=== PATIENT | male | born 1960 | race Caucasian/White ===

== ENCOUNTER 2019-04-10 04:10 | Emergency (ER) | payer MEDICARE, BC ==
[~2019-04-10] VITALS: Ht 187.9 cm; Wt 94.3 kg
[2019-04-10] VITALS (7 sets, daily range): BP systolic 102–111; BP diastolic 52–60
[~2019-04-10 04:10] MED LIST: AZO-SULFISOXAZO1 TA1 PO; CHLORDIAZEPOXID PO; CYANOCOBAL1000 MCG/M SC; CYCLOBENZAPRINE5 M3 PO; Cimetidine400 MG PO; DULOXETINE HCL60 MG PO; KEFLEX 500 MG E2 CAP PO; LIBRIUM5 MG PO; LISINOPRIL20 MG PO; MELOXICAM15 MG PO; METRONIDAZOLE TP; OXYCODONE HCL5 MG PO; SIMVASTATIN40 MG PO; TRAMADOL HCL50 MG PO; VITAMIN D50000 I3 PO
[2019-04-10 05:13] LABS: MEAN CELL VOLUME 144.6 fl (80.0-94.0); MEAN CORPUSCULAR HGB CONC 31.6 g/dl (33.0-37.0); MEAN PLATELET VOLUME 12.7 fl (9.6-12.3); NUCLEATED RED BLOOD CELL 0.1 10*3/uL (0.0-0.0); NUCLEATED RED BLOOD CELL 0.6 % (0.0-0.0); PLATELET COUNT AUTOMATED 88 10*3/uL (130-400); RED BLOOD COUNT 0.92 10*6/uL (4.50-5.90); WHITE BLOOD COUNT 7.7 10*3/uL (4.8-10.8)
[2019-04-10 05:19] LABS: MEAN CORPUSCULAR HGB 45.7 pg (27.0-31.0)
[2019-04-10 05:21] LABS: HEMOGLOBIN 4.2 g/dl (14.0-18.0)
--- NOTE | 2019-04-10 05:21 | NUR ---
NOTIFICATION FROM LAB OF HMG OF 4.2 AND HCT OF 13.3 MD. MADE AWARE. CARON CAT RN.
[2019-04-10 05:24] LABS: HEMATOCRIT 13.3 % (42.0-52.0)
[2019-04-10 05:30] LABS: ALBUMIN 2.4 gm/dl (3.1-4.5); ALKALINE PHOSPHATASE 86 U/L (45-117); BUN 57 mg/dl (7-24); CHLORIDE 101 mmol/L (98-107); CPK 87 U/L (39-308); CREATININE 2.73 mg/dL (0.70-1.30); LIPASE 1069 U/L (73-393); POTASSIUM 4.8 mmol/L (3.5-5.1); SGOT/AST 111 IU/L (3-35); SGPT/ALT 43 U/L (12-78); SODIUM 133 mmol/L (136-145); TOTAL PROTEIN 8.3 gm/dL (6.4-8.2)
[2019-04-10 05:35] LABS: TROPONIN I < 0.015 ng/ml (<0.045)
--- NOTE | 2019-04-10 05:35 | NUR ---
NOTIFICATION FROM LAB OF A LACTIC ACID OF 4.6 MD POWELL AWARE. CARON CAT RN.
[2019-04-10 05:40] LABS: INTERNATIONAL NORM RATIO 2.1 (2.0-3.5)
[2019-04-10 05:45] LABS: MEAN CELL VOLUME 144.3 fl (80.0-94.0); MEAN CORPUSCULAR HGB 44.3 pg (27.0-31.0); MEAN CORPUSCULAR HGB CONC 30.7 g/dl (33.0-37.0); MEAN PLATELET VOLUME 12.9 fl (9.6-12.3); NUCLEATED RED BLOOD CELL 0.1 10*3/uL (0.0-0.0); NUCLEATED RED BLOOD CELL 0.9 % (0.0-0.0); PLATELET COUNT AUTOMATED 79 10*3/uL (130-400); RED BLOOD COUNT 0.88 10*6/uL (4.50-5.90); WHITE BLOOD COUNT 6.8 10*3/uL (4.8-10.8)
[2019-04-10 05:48] LABS: HEMOGLOBIN 3.9 g/dl (14.0-18.0)
[2019-04-10 05:49] LABS: HEMATOCRIT 12.7 % (42.0-52.0)
--- NOTE | 2019-04-10 05:52 | NUR ---
HGB 3.9, HCT 12.[address] MCNAMARA NOTIFIED.
[2019-04-10 06:00] LABS: BASOPHILS 2 % (0-1); PLATELET SUFFICIENCY LOW (NORMAL); POLYCHROMASIA SLIGHT; ROULEAUX MODERATE; TARGET CELLS FEW; TOTAL CELLS COUNTED 100 #CELLS
[2019-04-10 06:01] LABS: HOWELL-JOLLY BODIES FEW
[2019-04-10 06:06] LABS: BASOPHILS 1 % (0-1); PLATELET SUFFICIENCY LOW (NORMAL); POLYCHROMASIA SLIGHT; ROULEAUX MODERATE; TARGET CELLS FEW; TOTAL CELLS COUNTED 100 #CELLS
--- NOTE | 2019-04-10 07:30 | NUR ---
FIRST UNIT OF PRBC'S STARTED. UNABLE TO SCAN ON TAR IT IS CURRENTLY DOWN ACCORDING TO BLOOD BANK.
--- NOTE | 2019-04-10 08:55 | NUR ---
[facility]IFE TEAM HERE FOR TRANSPORT.
--- NOTE | 2019-04-10 08:55 | NUR ---
BLOOD STILL TRANSFUSING UPON DISCHARGE.
--- NOTE | 2019-04-10 08:58 | NUR ---
REPORT TO LUIS AT [facility].
== END 2019-04-10 09:01 | disposition short-term general hospital (02) ==
LOC: ED 04:10 → EDHOLD 06:27 → ED 06:27
PROVIDERS: Emergency Medicine
DX: K92.2 Gastrointestinal hemorrhage, unspecified (principal); D64.9 Anemia, unspecified; F10.121 Alcohol abuse with intoxication delirium; D68.9 Coagulation defect, unspecified; I10 Essential (primary) hypertension; E78.5 Hyperlipidemia, unspecified; Y90.9 Presence of alcohol in blood, level not specified

== ENCOUNTER 2019-06-10 13:47 | Inpatient (IN) | payer MEDICARE, BC ==
[~2019-06-10] VITALS: Ht 187.9 cm; Wt 77.1 kg
[2019-06-10] VITALS (19 sets, daily range): BP systolic 111–163; BP diastolic 59–110
[2019-06-10 14:39] LABS: MEAN CELL VOLUME 108.2 fl (80.0-94.0); MEAN CORPUSCULAR HGB 35.2 pg (27.0-31.0); MEAN CORPUSCULAR HGB CONC 32.5 g/dl (33.0-37.0); MEAN PLATELET VOLUME 11.5 fl (9.6-12.3); PLATELET COUNT AUTOMATED 104 10*3/uL (130-400); RED BLOOD COUNT 1.82 10*6/uL (4.50-5.90); RED CELL DISTRI WIDTH 16.2 % (0-14.5); WHITE BLOOD COUNT 6.6 10*3/uL (4.8-10.8)
[2019-06-10 14:41] LABS: HEMOGLOBIN 6.4 g/dl (14.0-18.0)
[2019-06-10 14:42] LABS: HEMATOCRIT 19.7 % (42.0-52.0)
[2019-06-10 14:48] LABS: INTERNATIONAL NORM RATIO 1.7 (2.0-3.5)
[2019-06-10 14:54] LABS: ALBUMIN 2.5 gm/dl (3.1-4.5); ALKALINE PHOSPHATASE 143 U/L (45-117); BUN 38 mg/dl (7-24); CHLORIDE 104 mmol/L (98-107); CREATININE 2.04 mg/dL (0.70-1.30); POTASSIUM 4.6 mmol/L (3.5-5.1); SGOT/AST 94 IU/L (3-35); SGPT/ALT 78 U/L (12-78); SODIUM 138 mmol/L (136-145); TOTAL PROTEIN 8.5 gm/dL (6.4-8.2)
[2019-06-10 14:55] LABS: TROPONIN I < 0.015 ng/ml (<0.045)
[2019-06-10 15:01] LABS: TOTAL CELLS COUNTED 100 #CELLS
[2019-06-10 15:02] LABS: OVALOCYTES FEW; PLATELET SUFFICIENCY NORMAL (NORMAL); SCHISTOCYTES FEW
--- NOTE | 2019-06-10 21:48 | NUR ---
A 58, admitted to 4E, under the services of ALEKSANDRA Patton DO with a diagnosis of HYPERAMMONEMIA. Chief complaint is ANEMIA. Patient arrived via stretcher from ER. Monitor applied. Initial assessment completed. Vital signs taken and recorded. ALEKSANDRA PATTON DO notified of admission to the unit. Orders received. See assessment for past medical history, medications and allergies. Patient and/or family oriented to unit. Clothing/patient valuable form completed. JUANI JACOBS
--- NOTE | 2019-06-10 22:00 | NUR ---
AT BEDSIDE, MED REC COMPLETED PER HER.
[2019-06-10] MEDS ORDERED: LACTULOSE10 GM/15 M PO (22:08)
[2019-06-10] MEDS ORDERED: B121000 MCG/1 IM (22:16)
[2019-06-10] MEDS ORDERED: GLIPIZIDE5 MG PO (22:19)
[2019-06-10] MEDS ORDERED: HYDROXYZINE HCL25 MG PO (22:20)
[2019-06-10] MEDS ORDERED: FUROSEMIDE40 MG PO (22:20)
[2019-06-10] MEDS ORDERED: PANTOPRAZOLE SO40 MG PO (22:20)
[2019-06-10] MEDS ORDERED: METOPROLOL TART50 M1 PO (22:21)
[2019-06-10] MEDS ORDERED: NATURE'S BLEND F1 MG PO (22:21)
[2019-06-11] VITALS: BP 111/49
[2019-06-11 06:08] LABS: ALBUMIN 2.1 gm/dl (3.1-4.5); CREATININE 2.09 mg/dL (0.70-1.30); PHOSPHOROUS 4.8 mg/dL (2.5-4.9); POTASSIUM 4.6 mmol/L (3.5-5.1); TOTAL PROTEIN 7.6 gm/dL (6.4-8.2)
[2019-06-11 06:13] LABS: THYROID STIM HORMONE (HS) 0.929 uIU/ml (0.358-4.75)
[2019-06-11 06:18] LABS: FREE T4 1.25 ng/dl (0.76-1.46)
[2019-06-11 06:27] LABS: BASO # 0.1 10*3/uL (0.0-0.1); BASO % 0.8 % (0.0-1.0); EOS # 0.6 10*3/uL (0.0-0.4); EOS % 8.4 % (1.0-4.0); HEMOGLOBIN 8.3 g/dl (14.0-18.0); LYMPH # 0.9 10*3/uL (1.3-4.4); LYMPH % 12.2 % (27.0-41.0); MEAN CORPUSCULAR HGB 33.2 pg (27.0-31.0); MEAN CORPUSCULAR HGB CONC 33.2 g/dl (33.0-37.0); MEAN PLATELET VOLUME 11.9 fl (9.6-12.3); MONO # 0.5 10*3/uL (0.1-1.0); MONO % 7.1 % (3.0-9.0); NEUT # 5.2 10*3/uL (2.3-7.9); NEUT % 71.1 % (47.0-73.0); PLATELET COUNT AUTOMATED 87 10*3/uL (130-400); RED CELL DISTRI WIDTH 20.5 % (0-14.5); WHITE BLOOD COUNT 7.3 10*3/uL (4.8-10.8)
[2019-06-11 06:34] LABS: ACT PARTIAL THROMBO TIME 33.9 SECONDS (20.0-32.1); INTERNATIONAL NORM RATIO 1.8 (2.0-3.5)
[2019-06-11 07:42] LABS: VITAMIN D, 25-HYDROXY 32.5 ng/mL (30-100)
[2019-06-11 08:00] VITALS: BP 110/58
--- NOTE | 2019-06-11 09:00 | NUR ---
Director [facility] in to talk to patient. Patient states lives at home with . There are no steps in the home. Physician: vishnu styles [facility] Patient's level of ADLs: INDEPENDENT Patient has working utilities: all working DME: none Follow-up physician's appointment after d/c: will be made by hospitalist nurse director upon discharge Does patient want to access PORTAL?: no Discharge plan discussed with patient, he states she lives at home with , he is independent in adls and ambulation, he stated he will return home when medically stable and denies any home needs, case management will follow . NEYDA BOYER
[2019-06-11 12:00] VITALS: BP 123/69
[2019-06-11 16:00] VITALS: BP 106/60
[2019-06-11 20:00] VITALS: BP 114/65
--- NOTE | 2019-06-11 20:00 | NUR ---
ALERT ORIENTED X 3. JAUNDICE SKIN AND SCLERA.NO ACUTE DISTRESS NOTED.
[2019-06-11 23:57] VITALS: BP 115/68
--- NOTE | 2019-06-12 04:53 | NUR ---
24 HR chart check completed.
[2019-06-12 06:36] LABS: HEMATOCRIT 24.6 % (42.0-52.0); HEMOGLOBIN 8.3 g/dl (14.0-18.0); MEAN CELL VOLUME 100.8 fl (80.0-94.0); MEAN CORPUSCULAR HGB CONC 33.7 g/dl (33.0-37.0); PLATELET COUNT AUTOMATED 83 10*3/uL (130-400); RED BLOOD COUNT 2.44 10*6/uL (4.50-5.90); RED CELL DISTRI WIDTH 19.9 % (0-14.5); WHITE BLOOD COUNT 7.4 10*3/uL (4.8-10.8)
[2019-06-12 07:06] LABS: ALBUMIN 2.2 gm/dl (3.1-4.5); CREATININE 1.88 mg/dL (0.70-1.30); POTASSIUM 3.8 mmol/L (3.5-5.1); TOTAL PROTEIN 7.9 gm/dL (6.4-8.2)
[2019-06-12 07:07] LABS: ACANTHOCYTES FEW; BASOPHILS 1 % (0-1); PLATELET SUFFICIENCY LOW (NORMAL); SCHISTOCYTES FEW; TARGET CELLS FEW; TOTAL CELLS COUNTED 100 #CELLS
[2019-06-12 08:00] VITALS: BP 116/68
--- NOTE | 2019-06-12 09:00 | NUR ---
case management visits with patient, he states he will return home when medically stable possibly today, patient stated he has home VNA with [facility], case management spoke to respresentative from [facility], they were aware patient was in the hospital. case management faxed patient's information to them and they will resume when patient is discharged, case management will follow
--- NOTE | 2019-06-12 13:10 | NUR ---
Discharge instructions reviewed with patient/family. Patient receptive and verbalizes understanding. Follow-up care arranged. Written instructions given to patient/family. PATIENT DISCHARGED TO [facility] BY WHEELCHAIR, ACCOMPANIED BY [facility], FOR TRANSPORT HOME BY PRIVATE VEHICLE WITH HIS DAUGHTER. BRE HAMMOND
== END 2019-06-12 13:10 | disposition home health service (06) | DRG 811 ==
LOC: ED 13:47 → 4E 20:47 → EDHOLD 20:47 → 4E 21:17
PROVIDERS: Emergency Medicine; Internal Medicine; ADMIT Emergency Medicine
PROC: 30233N1 Transfusion of Nonautologous Red Blood Cells into Peripheral Vein, Percutaneous Approach (ICD-10-PCS; principal; 2019-06-10)
DX: D64.9 Anemia, unspecified (principal); K72.00 Acute and subacute hepatic failure without coma; E72.20 Disorder of urea cycle metabolism, unspecified; D68.9 Coagulation defect, unspecified; D69.6 Thrombocytopenia, unspecified; E80.6 Other disorders of bilirubin metabolism; D72.810 Lymphocytopenia; Z79.899 Other long term (current) drug therapy; Z83.3 Family history of diabetes mellitus; Z82.49 Family history of ischemic heart disease and other diseases of the circulatory system; Z80.1 Family history of malignant neoplasm of trachea, bronchus and lung

== ENCOUNTER 2019-06-18 19:45 | Emergency (ER) | payer MEDICARE, BC ==
[~2019-06-18] VITALS: Ht 187.9 cm; Wt 81.2 kg
[~2019-06-18 19:45] MED LIST changes: +B121000 MCG/1 IM; +FUROSEMIDE40 MG PO; +GLIPIZIDE5 MG PO; +HYDROXYZINE HCL25 MG PO; +LACTULOSE10 GM/15 M PO; +METOPROLOL TART50 M1 PO; +NATURE'S BLEND F1 MG PO; +PANTOPRAZOLE SO40 MG PO
[2019-06-18 21:07] LABS: HEMATOCRIT 23.9 % (42.0-52.0); HEMOGLOBIN 7.9 g/dl (14.0-18.0); MEAN CELL VOLUME 103.5 fl (80.0-94.0); MEAN CORPUSCULAR HGB 34.2 pg (27.0-31.0); MEAN CORPUSCULAR HGB CONC 33.1 g/dl (33.0-37.0); MEAN PLATELET VOLUME 11.6 fl (9.6-12.3); PLATELET COUNT AUTOMATED 79 10*3/uL (130-400); RED BLOOD COUNT 2.31 10*6/uL (4.50-5.90); RED CELL DISTRI WIDTH 17.2 % (0-14.5); WHITE BLOOD COUNT 9.2 10*3/uL (4.8-10.8)
[2019-06-18 21:17] LABS: INTERNATIONAL NORM RATIO 1.7 (2.0-3.5)
[2019-06-18 21:22] LABS: ALBUMIN 2.4 gm/dl (3.1-4.5); CREATININE 2.24 mg/dL (0.70-1.30); POTASSIUM 3.9 mmol/L (3.5-5.1); TOTAL PROTEIN 8.5 gm/dL (6.4-8.2)
[2019-06-18 21:27] LABS: BASOPHILS 3 % (0-1); TOTAL CELLS COUNTED 100 #CELLS
[2019-06-18 21:28] LABS: BURR CELLS FEW; PLATELET SUFFICIENCY LOW (NORMAL)
== END 2019-06-19 00:30 | disposition home or self-care (01) ==
LOC: ED 19:45
PROVIDERS: Emergency Medicine
DX: D64.9 Anemia, unspecified (principal); E72.20 Disorder of urea cycle metabolism, unspecified; E78.5 Hyperlipidemia, unspecified; I10 Essential (primary) hypertension; E78.00 Pure hypercholesterolemia, unspecified; Z79.899 Other long term (current) drug therapy

== ENCOUNTER 2019-10-10 15:28 | Observation (INO) | payer MEDICARE, BC ==
[~2019-10-10] VITALS: Ht 188 cm; Wt 73.2 kg
[2019-10-10] VITALS (20 sets, daily range): BP systolic 90–143; BP diastolic 36–86
[~2019-10-10 15:28] MED LIST changes: -VITAMIN D50000 I3 PO; +WEEKLY-D1250 MCG PO
[2019-10-10 17:05] LABS: MEAN CORPUSCULAR HGB 31.5 pg (27.0-31.0); MEAN CORPUSCULAR HGB CONC 32.8 g/dl (33.0-37.0); MEAN PLATELET VOLUME 12.4 fl (9.6-12.3); PLATELET COUNT AUTOMATED 72 10*3/uL (130-400); RED CELL DISTRI WIDTH 20.2 % (0-14.5); WHITE BLOOD COUNT 4.1 10*3/uL (4.8-10.8)
[2019-10-10 17:09] LABS: HEMATOCRIT 19.2 % (42.0-52.0)
[2019-10-10 17:14] LABS: ACT PARTIAL THROMBO TIME 36.3 SECONDS (20.0-32.1); INTERNATIONAL NORM RATIO 1.7 (2.0-3.5)
[2019-10-10 17:18] LABS: ALBUMIN 2.6 gm/dl (3.1-4.5); CREATININE 2.26 mg/dL (0.70-1.30); POTASSIUM 5.5 mmol/L (3.5-5.1); TOTAL PROTEIN 7.4 gm/dL (6.4-8.2)
[2019-10-10 17:37] LABS: BASOPHILS 1 % (0-1); BURR CELLS MANY; TOTAL CELLS COUNTED 100 #CELLS
[2019-10-10 17:38] LABS: ACANTHOCYTES FEW; PLATELET SUFFICIENCY LOW (NORMAL)
[2019-10-10] MEDS ORDERED: Carafate1 GM PO (20:42)
[2019-10-10] MEDS ORDERED: XIFAXAN550 MG PO (20:46)
[2019-10-10] MEDS ORDERED: NOVOLOG10 ML SC (20:47)
[2019-10-11] VITALS (10 sets, daily range): BP systolic 93–148; BP diastolic 48–82
[2019-10-11 02:23] LABS: BASO % 0.7 % (0.0-1.0); EOS # 0.1 10*3/uL (0.0-0.4); EOS % 2.5 % (1.0-4.0); HEMATOCRIT 25.8 % (42.0-52.0); LYMPH # 1.5 10*3/uL (1.3-4.4); MEAN CELL VOLUME 89.3 fl (80.0-94.0); MEAN CORPUSCULAR HGB 29.4 pg (27.0-31.0); MEAN CORPUSCULAR HGB CONC 32.9 g/dl (33.0-37.0); MEAN PLATELET VOLUME 10.9 fl (9.6-12.3); MONO # 0.8 10*3/uL (0.1-1.0); MONO % 17.6 % (3.0-9.0); NEUT % 45.7 % (47.0-73.0); PLATELET COUNT AUTOMATED 62 10*3/uL (130-400); RED BLOOD COUNT 2.89 10*6/uL (4.50-5.90); RED CELL DISTRI WIDTH 20.4 % (0-14.5); WHITE BLOOD COUNT 4.4 10*3/uL (4.8-10.8)
[2019-10-11 06:29] LABS: BASO % 0.9 % (0.0-1.0); EOS # 0.1 10*3/uL (0.0-0.4); EOS % 3.1 % (1.0-4.0); HEMATOCRIT 23.9 % (42.0-52.0); LYMPH # 1.5 10*3/uL (1.3-4.4); LYMPH % 35.3 % (27.0-41.0); MEAN CELL VOLUME 88.2 fl (80.0-94.0); MEAN CORPUSCULAR HGB 29.9 pg (27.0-31.0); MEAN CORPUSCULAR HGB CONC 33.9 g/dl (33.0-37.0); MONO # 0.7 10*3/uL (0.1-1.0); MONO % 16.1 % (3.0-9.0); NEUT # 1.8 10*3/uL (2.3-7.9); NEUT % 43.7 % (47.0-73.0); PLATELET COUNT AUTOMATED 72 10*3/uL (130-400); RED BLOOD COUNT 2.71 10*6/uL (4.50-5.90); RED CELL DISTRI WIDTH 20.2 % (0-14.5); WHITE BLOOD COUNT 4.2 10*3/uL (4.8-10.8)
[2019-10-11 08:57] LABS: ALBUMIN 2.4 gm/dl (3.1-4.5); POTASSIUM 5.4 mmol/L (3.5-5.1); TOTAL PROTEIN 7.1 gm/dL (6.4-8.2)
[2019-10-11 14:30] LABS: CREATININE 1.86 mg/dL (0.70-1.30); POTASSIUM 4.8 mmol/L (3.5-5.1)
== END 2019-10-11 18:57 | disposition home or self-care (01) ==
LOC: ED 15:28 → EDHOLD 17:59 → 4E 18:43
PROVIDERS: Emergency Medicine; Family Medicine; Internal Medicine; ADMIT Internal Medicine
DX: D64.9 Anemia, unspecified (principal); E11.65 Type 2 diabetes mellitus with hyperglycemia; R42 Dizziness and giddiness; I10 Essential (primary) hypertension; N17.0 Acute kidney failure with tubular necrosis; E78.5 Hyperlipidemia, unspecified; K72.90 Hepatic failure, unspecified without coma; E43 Unspecified severe protein-calorie malnutrition; E87.1 Hypo-osmolality and hyponatremia; G45.9 Transient cerebral ischemic attack, unspecified; E80.6 Other disorders of bilirubin metabolism; E83.42 Hypomagnesemia; E87.8 Other disorders of electrolyte and fluid balance, not elsewhere classified; E87.5 Hyperkalemia; F17.210 Nicotine dependence, cigarettes, uncomplicated